=== PATIENT | male | born 1980 | race American Indian/Alaskan Native ===

== ENCOUNTER 2017-10-16 13:10 | Emergency (ER) | payer OTHER ==
[~2017-10-16] VITALS: Ht 177.8 cm; Wt 72.6 kg
[~2017-10-16 13:10] MED LIST: Augmentin 875-1 EACH PO; Bactrim Ds Tab1 EACH PO; CEPH500 PO; CLIN300 PO; Ceftin500 MG PO; Cleocin HCl300 MG PO; HYDACE5 PO; IBUP600 PO; IBUP800 PO; MONDOXYNE NL100 MG PO; Naprosyn500 MG PO; Norco 10-325 T1 EACH PO; Norco 7.5-3251 EACH PO; OXYACE5T PO; PENVK500 PO; Percocet 5-3251 EACH PO; SULTRIDS PO; SULTRISS PO; TRAM50 PO; Veetids 500500 MG PO
== END 2017-10-16 14:22 | disposition home or self-care (01) ==
LOC: ER 13:10
DX: S61.012A Laceration without foreign body of left thumb without damage to nail, initial encounter (principal); F17.210 Nicotine dependence, cigarettes, uncomplicated; W26.8XXA Contact with other sharp object(s), not elsewhere classified, initial encounter
CPT/HCPCS: 29125; 99283

== ENCOUNTER 2021-12-08 16:49 | Emergency (ER) | payer OTHER ==
[~2021-12-08] VITALS: Ht 175.3 cm; Wt 77.1 kg
[~2021-12-08 16:49] MED LIST changes: +AMOCLA875 PO; +IBU600 M1 PO; +PRED20 PO
[2021-12-08] MEDS ORDERED: SULTRIDS PO (18:27)
== END 2021-12-08 18:39 | disposition home or self-care (01) ==
LOC: ER 16:49
DX: N49.2 Inflammatory disorders of scrotum (principal); L73.9 Follicular disorder, unspecified; F17.210 Nicotine dependence, cigarettes, uncomplicated; H54.61 Unqualified visual loss, right eye, normal vision left eye
CPT/HCPCS: 76870; 99284-25; A9270

== ENCOUNTER → 2024-08-29 | Outpatient (CLI) | payer OTHER ==
[~2024-08-29] MED LIST changes: +Mupirocin22 GM TOP; +NARCAN4 M1
[2024-08-29 12:19] LABS: BASOPHILS ABSOLUTE AUTO 0.05 K/mm3 (0.00-0.23); BASOPHILS PERCENT AUTO 1 % (0-2); EOSINOPHILS ABSOLUTE AUTO 0.18 K/mm3 (0.00-0.68); EOSINOPHILS PERCENT AUTO 3 % (0-6); Hematocrit 44.8 % (37.0-53.0); Hemoglobin 15.5 g/dL (13.5-17.5); IMMATURE GRAN PERCENT AUTO 0 % (0-1); LYMPHOCYTES ABSOLUTE AUTO 3.99 K/mm3 (0.84-5.20); LYMPHOCYTES PERCENT AUTO 58 % (21-46); MONOCYTES ABSOLUTE AUTO 0.71 K/mm3 (0.16-1.47); MONOCYTES PERCENT AUTO 10 % (4-13); Mean Corpuscular HGB 31.3 pg (26.0-34.0); Mean Corpuscular HGB Conc 34.6 g/dL (31.5-36.5); Mean Corpuscular Volume 91 fL (80-100); Mean Platelet Volume 10.3 fL (9.1-12.4); NEUTROPHILS ABSOLUTE AUTO 1.94 K/mm3 (1.96-9.15); NEUTROPHILS PERCENT AUTO 28 % (41-73); Platelet Count 235 K/mm3 (150-400); RDW Coefficient Variation 13.2 % (11.7-14.2); RDW Standard Deviation 43.8 fL (35.1-46.3); Red Blood Cell Count 4.95 M/mm3 (4.30-5.90); White Blood Cell Count 6.87 K/mm3 (4.00-11.30)
[2024-08-29 13:15] LABS: Alanine Aminotransfer (ALT/SGP 100 U/L (12-78); Albumin, Blood 3.7 g/dL (3.4-5.0); Alk Phos 93 U/L (50-136); Anion Gap 6 mmol/L (3-11); Aspartate Aminotrans (AST/SGOT 67 U/L (12-37); Bilirubin, Total 0.4 mg/dL (0.1-1.0); Blood Urea Nitrogen 9 mg/dL (8-24); Bun/Creatinine Ratio 11.6 (12.0-20.0); CHOL/HDL RATIO 2.5; CO2, Blood 29 mmol/L (21-32); Calcium, Blood 8.3 mg/dL (8.5-10.1); Chloride, Blood 105 mmol/L (98-108); Cholesterol 114 mg/dL (50-200); Creatinine, Blood 0.78 mg/dL (0.60-1.20); Globulin, Blood 3.6 g/dL (2.2-4.0); Glomerular Filtration Rate 113 (60-); Glucose, Blood 74 mg/dL (70-99); HDL Cholesterol 46 mg/dL (>39); LDL/HDL RATIO 1.2; Low Density Lipoprotein Chol 55 mg/dL (0-110); Potassium, Blood 3.2 mmol/L (3.5-5.5); Sodium, Blood 137 mmol/L (136-145); Thyroid Stimulating Hormone 0.723 uIU/mL (0.360-4.800); Total Protein, Blood 7.3 g/dL (6.4-8.2); Triglycerides 65 mg/dL (30-160); Very Low Density Lipoprot Chol 13 mg/dL (6-32)
[2024-09-02 15:26] LABS: HEPATITIS C AB CIA INTERP High Pos (Negative); HEPATITIS C ANTIBODY CIA INDEX >11.00 IV
[2024-09-04 07:15] LABS: HCV QNT BY NAAT (IU/ML) 2360000 IU/mL; HCV QNT BY NAAT (LOG IU/ML) 6.37; HCV QNT BY NAAT INTERP Detected (Not Detected)
== END ==
LOC: LAB SHORT 11:01 → LAB 11:01
PROVIDERS: Physician Assistant
DX: Z51.81 Encounter for therapeutic drug level monitoring (principal); Z79.899 Other long term (current) drug therapy; Z86.19 Personal history of other infectious and parasitic diseases
CPT/HCPCS: 80053; 80061; 82306; 84443; 85025; 86803; 87522

== ENCOUNTER → 2025-01-08 | Outpatient (CLI) | payer OTHER ==
[2025-01-10 16:52] LABS: HIV 1,2 COMBO ANTIGEN/ANTIBODY Negative (Negative)
[2025-01-11 08:57] LABS: HEPATITIS A ANTIBODY, IGM Negative (Negative); HEPATITIS C AB CIA INTERP High Pos (Negative); HEPATITIS C ANTIBODY CIA INDEX >11.00 IV
[2025-01-13 04:58] LABS: APTIMA MEDIA TYPE Urine; C. TRACHOMATIS BY TMA Negative (Negative); N. GONORRHOEAE BY TMA Positive (Negative); T. VAGINALIS BY TMA Negative (Negative)
[2025-01-13 04:59] LABS: HCV QNT BY NAAT (IU/ML) 2190000 IU/mL; HCV QNT BY NAAT (LOG IU/ML) 6.34; HCV QNT BY NAAT INTERP Detected (Not Detected); HSV SUBTYPE SOURCE Blood
== END | disposition home or self-care (01) ==
LOC: LAB SHORT 17:06 → LAB 17:06
PROVIDERS: Family Medicine
DX: R30.9 Painful micturition, unspecified (principal); R36.9 Urethral discharge, unspecified
CPT/HCPCS: 80074; 86592; 87086; 87389; 87491; 87522; 87529; 87591; 87661